=== PATIENT | female | born 1940 | race Caucasian/White ===

== ENCOUNTER 2019-03-25 22:02 | Inpatient (IN) ==
[2019-03-25] MEDS ORDERED: MORPHINE IM ONE (22:52)
[2019-03-26] MEDS ORDERED: ZOFRAN PO ONE (00:13)
--- NOTE | 2019-03-26 00:35 | PROVIDER DOCUMENTATION ---
This chart was entered by Jonathan Cruz Scribe, acting as scribe for Willie Daniel MD. HPI-Musculoskeletal Pain/Inj - GENERAL Chief Complaint: Extremity Injury Stated Complaint: fall Time Seen by Provider: 03/25/19 22:27 Source: patient, family (friends), EMS - HX OF PRESENT ILLNESS-MUSKULOSKELTAL Nature of Presenting Problem: 79 yof presents to the ed v/a ems with c/o Lt knee pain from falling. Friends stated" was at pts house it was dark and all getting in cars looked back and pt was on her back , pt states i might of fell on left side when falling i stepped off curve." pt has abrasion on Lt knee and has pain when walking on Lt extremity." Quality of Pain: reports: aching Severity in ED: mild Onset/Duration: just prior to arrival Timing: still present Modifying Factors: worse with: massage, movement Any recent injury?: No Locality of Occurance: Home Similar Symptoms Previously?: No Recently seen or treated by another doctor?: No - FALL INJURY Location of Pain/Injury: reports: lower extremity (Lt Knee abrasion swelling) Pain Radiation: reports: no radiation Reason for Fall: reports: tripped Symptoms prior to fall:: reports: none Loss of Consciousness: no loss of consciousness Injury Associated Symptoms: reports: unable to bear weight, trouble walking. denies: back/neck pain, chest pain, nausea, vomiting - LOWER EXTREMITY PAIN/INJURY Lower Extremities Pain: knee: left (abrasion ) Context / Method of Injury: reports: fell Associated Symptoms: reports: denies symptoms Review of Systems - Adult - REVIEW OF SYSTEMS - ADULT Constitutional: reports: no symptoms reported Eyes: reports: no symptoms reported Ears, Nose, Mouth & Throat: reports: no symptoms reported Cardiovascular: reports: no symptoms reported Respiratory: reports: no symptoms reported Gastrointestinal: reports: no symptoms reported Genitourinary: reports: no symptoms reported Musculoskeletal: reports: see HPI. denies: back pain, neck pain Integumentary: reports: no symptoms reported Neurological: reports: no symptoms reported Psychiatric: reports: no symptoms reported Endocrine: reports: no symptoms reported Hematologic/Lymphatic: reports: no symptoms reported Allergic/Immunologic: reports: no symptoms reported All Other Systems: Reviewed and Negative Past History - Adult - PAST MEDICAL HISTORY-ADULT Review of Records: reports: Old Records Reviewed, Nursing Assessment Review, Medications Reviewed, Social history reviewed & non-contributory. Major Childhood Illnesses: reports: denies history Cardiovascular: reports: HTN Respiratory: reports: denies history Gastrointestinal: reports: denies history Obstetrical/Gynecological: reports: denies history Genitourinary: reports: denies history Musculoskeletal: reports: denies history Neurological: reports: denies history Endocrine/Immune: reports: denies history Other Conditions: reports: denies history - PRIOR SURGERIES/PROCEDURES Surgical/Procedure History: reports: cholecystectomy, hysterectomy - IMMUNIZATION STATUS Childhood Immunizations: See Nurse Assessment Flu Vaccine: See Nurse Assessment - FAMILY HISTORY Family History: reviewed, not pertinent - SOCIAL HISTORY Smoking: denies Substance Use: denies Living Situation: alone Physical Exam-Injury Related - Physical Exam-Injury Related Initial Vital Signs Reviewed: Yes General Appearance: appears well, alert, mild distress. negative: lethargic, slow to respond Eyes: PERRL/EOMI Head, Ears, Nose, Mouth & Throat: moist mucous membranes Neck: full range of motion Respiratory: no pleuratic chest pain, no respiratory distress, no accessory muscle use Chest/Breast: deferred Abdominal Exam: no organomegaly, no pulsatile mass Female Genitalia/Pelvic Exam: deferred Rectal Exam: deferred Hemoccult Exam: deferred Lymphatic: no adenopathy Integumentary: normal color, warm/dry, abrasion (Lt knee) Neurologic: grossly normal, no motor/sensory deficits Psych/Mental Status: normal mood/affect, normal thought content, normal thought process, oriented x 3 - Glascow Coma Score Best Eye Response ([place]): (4) open spontaneously Best Verbal Response ([place]): (5) oriented Best Motor Response ([place]): (6) obeys commands [place] Total: 15 Progress - PLAN OF CARE/RESULTS Progress/Plan/Lab Results: Orders Category Date Time Status Nursing- Obtain EKG ONCE Care 03/26/19 00:33 Ordered CHEST-1 VIEW [RAD] Stat Exams 03/26/19 00:33 Ordered KNEE 3 VIEWS LEFT [RAD] Stat Exams 03/25/19 22:52 Taken CBC WITH ELECTRONIC DIFF [HEME] Stat Lab 03/26/19 00:33 Uncollected COMPREHENSIVE METABOLIC PANEL [CHEM] Stat Lab 03/26/19 00:33 Uncollected PROTIME WITH INR [COAG] Stat Lab 03/26/19 00:33 Uncollected PTT [COAG] Stat Lab 03/26/19 00:33 Uncollected TROPONIN T Stat Lab 03/26/19 00:33 Uncollected TYPE & SCREEN [BBK] Stat Lab 03/26/19 00:33 Uncollected Morphine Med 03/25/19 22:52 Discontinued 4 mg IM NOW ONE Ondansetron [Zofran] Med 03/26/19 00:13 Discontinued 4 mg PO NOW ONE EKG [EKG] Stat Ther 03/26/19 00:33 Ordered Pt has proximal tibia fx, spoke with Dr. Griffin and he will operated on Thursday, spoke with Dr. Castillo and will admit to his service - CONSULTS/PCP/HOSPITALIST Notification #1 *Consult/PCP/Hospitalist*: on phone with Dr. Griffin Time Discussed: 00:25 (pts fracture) #2 Consult: on phone with Dr. Castillo Time Discussed: 00:31 Consult Disposition: Admit Departure - Departure Date of Disposition Decision: 03/26/19 Time of Disposition Decision: 00:35 DIAGNOSIS: Fracture of proximal end of tibia Qualifiers: Encounter type: initial encounter Fracture type: closed Fracture morphology: unspecified fracture morphology Laterality: left Qualified Code(s): S82.102A - Unspecified fracture of upper end of left tibia, initial encounter for closed fracture Disposition: ADMITTED INPATIENT 09 Certified Medical Emergency: Emergent Condition: Good Referrals and Follow-Ups: Zakiya Hardy MD [Primary Care Provider] - - Critical Care Note This patient required my direct & personal management of CC.: No Attestation - Physician/ PRAVEEN Attestation Patient care was provided by Advanced Practice Provider:: No The physician spent face to face time with patient:: Yes Advanced Practice Provider documentation review:: Supervising physician onsite and consulted in the evaluation and care of this patient. The physician did have a face to face encounter with the patient. This chart was documented by the indicated scribe, (Jonathan Cruz Scribe) and accurately reflects the services I performed and decisions made by me, Willie Daniel MD, as attested by the provider's signature.
[2019-03-26] MEDS ORDERED: NS 1,000 ML IV SCH (01:15)
[2019-03-26 02:16] LABS: BASO# 0.03 X1000 (0.0-0.2); BASO% 0.2 % (0.0-0.8); EOS# 0.05 X1000 (0.0-0.7); EOS% 0.3 % (0.0-10.0); HEMATOCRIT 39.6 % (37.0-47.0); IMM GRAN# 0.04 X1000 (0.0-0.04); IMM GRAN% 0.2 % (0.0-0.5); LYMPH# 1.62 X1000 (1.2-3.4); LYMPH% 9.8 % (20.5-51.1); MCH 29.6 PG (27-31); MCHC 32.8 g/dL (33-37); MCV 90.2 FL (81-99); MONO# 0.96 X1000 (0.11-0.59); MONO% 5.8 % (1.7-9.3); MPV 11.6 FL (7.4-10.4); NEUT# 13.76 X1000 (1.4-6.5); NEUT% 83.7 % (42.2-75.2); PLT 185 X1000 (130-400); RBC 4.39 XMIL (4.2-5.4); RDW 12.7 % (11.5-14.5); WBC 16.46 X1000 (4.8-10.8)
[2019-03-26 02:24] LABS: INR 1.01; PROTIME 13.4 Seconds (11.0-16.0)
[2019-03-26 02:25] LABS: PTT 23.9 Seconds (22.3-41.8)
[2019-03-26 02:33] LABS: ALB/GLOB RATIO 1.6; ALBUMIN 4.3 g/dL (3.5-5.0); CALCIUM 9.5 mg/dL (8.8-10.2); CREATININE 0.9 mg/dL (0.5-0.9); POTASSIUM 3.8 mmol/L (3.5-5.1); TOTAL BILIRUBIN 0.35 mg/dL (0.20-1.00)
--- NOTE | 2019-03-26 03:03 | HISTORY AND PHYSICAL ---
PRIMARY CARE PHYSICIAN: Dr. Hardy. CHIEF COMPLAINT: Left knee pain. HISTORY OF PRESENT ILLNESS: Ms. Amador is an 79-year-old female who presented to the ER today with complaints of left knee pain. Patient states that she was stepping down from a curb and did not realize she was stepping down into a drain and fell. Patient is noted to have an abrasion to below her left knee area. She has some swelling noted to the knee area. She is having extreme pain. X-ray does show a proximal tibia fracture. Dr. Griffin was consulted by the ER physician, Dr. Daniel. We will admit this patient and consult orthopedic services. The patient is lying in ER stretcher. She is awake, alert, and oriented. She is complaining of pain to the left knee region. She was given a couple doses of pain medication in the ER and in the EMS. The knee is edematous. There is an abrasion noted to below the left knee region. The patient is not complaining of any other symptoms at this time. Patient does have a past medical history of hypertension, hyperlipidemia, a TIA and is on Plavix, and diabetes type 2 on metformin. The patient has not complained of any dizziness, any palpitations, any bowel or urinary symptoms or any other pain at this time. PAST MEDICAL HISTORY: TIA, hyperlipidemia, hypertension, diabetes type 2. PAST SURGICAL HISTORY: Gallbladder removal, hysterectomy. FAMILY HISTORY: Nonsignificant. SOCIAL HISTORY: The patient denies any smoking, alcohol or illicit drug abuse. ALLERGIES: Codeine and morphine. HOME MEDICATIONS: 1. Plavix 75 mg p.o. daily. 2. Ramipril 5 mg p.o. daily 3. Atorvastatin 20 mg p.o. daily. 4. Metformin 500 mg p.o. b.i.d. 5. Propranolol 20 mg t.i.d. p.o. for tremors. 6. Mirtazapine 15 mg p.o. at bedtime for sleep. LABORATORIES AND DIAGNOSTICS: Left knee x-ray does show a proximal tibia fracture. All other labs are pending. REVIEW OF SYSTEMS: A 12 point review of systems has been obtained and all are negative except what is stated above in the HPI. PHYSICAL EXAMINATION: GENERAL: This is an 79-year-old female. She is well nourished and well developed. She is in no acute distress at present time. HEENT: Atraumatic, normocephalic. Pupils equal, round, reactive to light. Sclerae are icteric. Mucous membranes are moist. NECK: Supple. No lymphadenopathy. Trachea is midline. No JVD. No thyromegaly. No bruits. CARDIOVASCULAR: Regular rate and rhythm. No murmurs, gallops, or rubs appreciated. RESPIRATORY: Lung sounds are clear with equal chest excursion. Respirations are nonlabored with no accessory muscle usage. GASTROINTESTINAL: Abdomen is soft, nontender, nondistended with bowel sounds present x4. NEUROLOGIC: Cranial nerves 2-12 are intact. The patient is awake, alert, and oriented, able to follow all commands. MUSCULOSKELETAL: The patient has full distal strength, however, the left lower extremity I did not perform strength on that because she did have a break on the extremity. However, she is able to move that extremity. There are no deformities noted. EXTREMITIES: There is no clubbing. No cyanosis. There is edema noted to the ankles and to the left knee area. DP and PT pulses are present and palpable. SKIN: Warm and dry. There is an abrasion noted to the left tibia area. There is no diaphoresis. ASSESSMENT AND PLAN: 1. Left proximal tibia fracture. We are going to admit this patient to the medical floor. We are going to place her on cafeteria monitor. We are going to consult Dr. Griffin for orthopedic services. We will go ahead and start her on a diet at this time. We will control her pain with Dilaudid. She is allergic to morphine and codeine. We will await Dr. Griffin's recommendations about when he is going to take her for surgery on this extremity. We are going to get some labs in the morning. We will put her on Lovenox. 2. Hypertension. She is on some medications at home for this. We will restart her home medications. 3. Hyperlipidemia. She is on atorvastatin at home. I will restart this medication. 4. Gastrointestinal prophylaxis. I will start her on some Prilosec daily. 5. Deep venous thrombosis prophylaxis. I will start her on Lovenox. PLAN: I am going to admit her to the medical floor. I am going to consult Dr. Griffin for orthopedic services. I will go ahead and start her on a diet and get some labs in the morning. I will start her on IV fluid hydration. I am going to put her on Lovenox and await Orthopedics recommendations about when she will be taken to surgery. I will provide her with Dilaudid for pain control and I will give her Zofran as needed for nausea. All other further recommendation pending hospital course and lab data. Dictated by ASHWIN Maza for MD Dr. Jonathan Bhatia participated in the interview and examination of the patient with ASHWIN. The above dictation is reflective of that interaction and the resultant medical treatment plan as discussed. cc: MD Armond Bhatia MD MTDAlma
--- NOTE | 2019-03-26 03:14 | EKG Report ---
Test Performed on : 03/26/2019 02:25:27 AM Test Reason : chest pain Blood Pressure : / mmHG Vent. Rate : 079 BPM Atrial Rate : 079 BPM P-R Int : 156 ms QRS Dur : 132 ms QT Int : 394 ms P-R-T Axes : 067 048 -08 degrees QTc Int : 451 ms Normal sinus rhythm. Possible Left atrial enlargement Right bundle branch block T wave abnormality, consider inferior ischemia T wave abnormality, consider anterior ischemia Abnormal ECG When compared with ECG of 19-MAR-2017 11:07, No significant change was found Confirmed by Delgado Castillo MD ([id number]) on 03/31/2019 8:57:29 AM
[2019-03-26] MEDS: DILAUDID IV PRN ×3 (03:41→22:41)
[2019-03-26] MEDS: LOVENOX SUBQ SCH (03:50)
[2019-03-26 04:15] LABS: BILIRUBIN URINE NEGATIVE (NEGATIVE); BLOOD URINE NEGATIVE (NEGATIVE); COLOR YELLOW; GLUCOSE URINE TRACE mg/dL (NEGATIVE); KETONE URINE NEGATIVE (NEGATIVE); LEUKOCYTES URINE TRACE (NEGATIVE); NITRITE URINE NEGATIVE (NEGATIVE); PH URINE 6.5; PROTEIN URINE TRACE mg/dL (NEGATIVE); SP GRAVITY URINE 1.016; TURBIDITY URINE CLEAR (CLEAR); URINE SOURCE CLEAN CATCH; UROBILINOGEN URINE NORMAL (NORMAL)
[2019-03-26 04:16] LABS: UR EPITHELIAL CELLS <10 /HPF (<10); URINE BACTERIA NEGATIVE /HPF; URINE RBC <10 /HPF (<10); URINE WBC <10 /HPF (<10)
--- NOTE | 2019-03-26 06:37 | Diag Imaging Result Doc PS360 ---
EXAM: CHEST-1 VIEW HISTORY: chest pain TECHNIQUE: Chest single view COMPARISON: 03/19/2017 FINDINGS: The lungs are well expanded. The heart is not enlarged. The vessels are not distended. There are no infiltrates. No effusion identified. IMPRESSION: Negative exam. Electronically signed by Mitchell Corley 03/26/2019 6:35 AM
--- NOTE | 2019-03-26 06:47 | Diag Imaging Result Doc PS360 ---
EXAM: KNEE 3 VIEWS LEFT HISTORY: fall, left knee pain TECHNIQUE: Left knee, three views COMPARISON: None. FINDINGS: There are oblique fracture lines through the proximal tibia. Minimal displacement and angulation. No fracture to the distal femur or to the proximal fibula. IMPRESSION: Proximal tibia fracture. Electronically signed by Mitchell Corley 03/26/2019 6:45 AM
[2019-03-26 07:07] LABS: HEMATOCRIT 36.9 % (37.0-47.0); HEMOGLOBIN 12.2 g/dL (12.0-16.0)
[2019-03-26] MEDS: ZOFRAN IV PRN ×2 (07:55→12:19)
[2019-03-26] MEDS: PRILOSEC PO SCH (08:53)
--- NOTE | 2019-03-26 09:14 | PROGRESS NOTE ---
DATE: 03/26/2019 SUBJECTIVE: The patient is resting comfortably in bed. At this moment, she is not complaining of pain, but she has been having nausea and she vomited today. I will continue with the IV fluids and also her diet. She has a left proximal tibial fracture, and Orthopedic Surgery Department has been consulted. Continue with pain medication. OBJECTIVE: Vital Signs: Temperature 97.6 degrees, pulse 81, respiratory rate 16, blood pressure 168/70, oxygen saturation 94% on room air. HEENT: Head normocephalic. No trauma. PERRLA. Neck: Supple. No JVD. No masses. Central trachea. Chest: Clear to auscultation. No wheezing. No rales. Abdomen: Soft, nontender, nondistended. No hepatosplenomegaly. Extremities: There is some mild edema at the level of the ankles, especially on the left side. There is also swelling from the left knee area, with some excoriation, it does not look infected. It is painful to palpation. Pulses are palpable. LABORATORY: WBC 16.4, hemoglobin 12.2, hematocrit 39.6, platelets 185,000. Sodium 143, potassium 3.8, chloride 104, bicarbonate 24, BUN 19, creatinine 0.9, glucose 192. Calcium 9.5. ASSESSMENT AND PLAN: 1. Left proximal tibia fracture. At this moment, she is not complaining of pain. We will continue with the same management. She does not tolerate morphine. She has been placed on Dilaudid 0.5 mg every 3 hours and she seems to be better with that treatment. Pending Orthopedic Surgery Department evaluation and recommendations. 2. Hypertension. We will continue with home medications. 3. Hyperlipidemia. Continue with atorvastatin. 4. Gastroesophageal reflux disease. Continue with Prilosec. 5. Deep vein thrombosis prophylaxis. She has been placed on Lovenox and she received a dose apparently at 3:50 a.m. I will continue with this for now and I will wait for Orthopedic Surgery Department recommendations. If she is going for surgery probably will be today, late in the afternoon or tomorrow morning, but like I said I will wait for recommendations. cc: Rodney Ramsey MD
[2019-03-26] MEDS: INDERAL PO SCH ×3 (09:53→22:41)
[2019-03-26] MEDS: GLUCOPHAGE PO SCH ×2 (09:53→17:34)
[2019-03-26] MEDS: ALTACE PO SCH (09:53)
[2019-03-26] MEDS: NEURONTIN PO SCH ×3 (09:53→22:41)
--- NOTE | 2019-03-26 10:43 | Diag Imaging Result Doc PS360 ---
EXAM: CT EXT LOWER LEFT W/O CON HISTORY: Left tibial plateau fracture TECHNIQUE: CT left lower extremity from the mid thigh to the distal tibia without contrast COMPARISON: None. FINDINGS: There is an oblique fracture through the proximal left tibia. Medially this is 7 cm from the tibial plateau. Laterally this extends superiorly and is only 2 cm from the tibial plateau. There is only 1 to 2 mm of displacement with minimal compaction. Nondisplaced oblique fracture to the proximal fibula. Mild soft tissue swelling. IMPRESSION: Oblique fractures to the proximal tibia and fibula. This exam was performed using automated exposure control, adjustment of mA or kV according to patient size, and/or use of iterative reconstruction technique. Electronically signed by Mitchell Corley 03/26/2019 10:41 AM
[2019-03-26] MEDS: HUMULIN R SUBQ SCH ×2 (13:01→17:21)
--- NOTE | 2019-03-26 15:21 | ORTHOPAEDICS CONSULTATION ---
DATE: 03/26/2019 SERVICE: Orthopedic Surgery. PHYSICIAN REQUESTING CONSULTATION: [facility], Dr. Saucedo. REASON FOR CONSULTATION: Left proximal tibia fracture. PAST MEDICAL HISTORY: 1. Transient ischemic attack 2 years ago. 2. Hypertension. 3. Hyperlipidemia. 4. Type 2 diabetes mellitus with her last hemoglobin A1c at 6.0. PAST SURGICAL HISTORY: 1. Cholecystectomy. 2. Hysterectomy. MEDICATIONS: 1. Aspirin 325 mg. 2. Plavix. 3. Metformin. 4. Ramipril. 5. Propranolol. 6. Remeron. 7. Lipitor. ALLERGIES: The patient reports allergy to codeine. SOCIAL HISTORY: Patient lives alone in [place]. She is very active for her age, is a community ambulator without assistive device. She still drives and states she attends water aerobics classes 3 times a week. She denies any tobacco, alcohol, drug use. She is a retired teacher. FAMILY HISTORY: Noncontributory. REVIEW OF SYSTEMS: Ten point review of system was completed, is negative other than what is listed in the history of present illness. CHIEF COMPLAINT: Left leg pain. HISTORY OF PRESENT ILLNESS: Ms Amador is a 79-year-old lady who sustained a same-level fall on 03/25/2019. She states she was walking outside at night and stepped off a curb into a drainage ditch basin unknowingly. She felt a pop in her knee and had significant pain and was unable to bear weight. She was taken to [facility] where x-rays were performed, demonstrating a left proximal 3rd tibia fracture. Orthopedic Surgery was thus consulted. The patient denies any pain in this leg prior to her fall. She denies any other complaints. PHYSICAL EXAMINATION: General: Ms. Amador is an 79-year-old female who appears well- nourished, well-developed, in no acute distress. She is awake, alert, oriented x3. She is very polite and cooperative during examination. Vital Signs: Temperature 98.2 degrees Fahrenheit, heart rate 78, respiratory rate 16, blood pressure 180/73, O2 saturation 91% on room air. HEENT: Normocephalic and atraumatic. Respiratory: Nonlabored breathing. Cardiovascular: Regular rate and rhythm. Extremities: Examination of left lower extremity shows a small superficial abrasion over the anterior aspect of her knee and tibial tubercle. She has no joint effusion in the knee. She has significant tenderness to palpation over her proximal tibia. Nontender over the fibula. Nontender thigh, ankle, or foot. Motor is intact EHL, tibialis anterior, gastrocsoleus complex. Sensation intact to light touch L3 to S1. Dorsalis pedis pulses palpable and equal bilaterally. Thigh and calf compartments are soft and compressible. She has some mild swelling in her anterior and lateral leg compartments; however, they are still soft and compressible. No pain with passive range of motion of the toes. No signs of acute compartment syndrome. LABORATORY DATA: White count is 16.5, hemoglobin 13, hematocrit 40, platelets 185,000. INR 1.0. Sodium 143, potassium 3.8, chloride 104, carbon oxide 24, BUN 19, creatinine 0.9, glucose 151. Urinalysis negative. IMAGING: AP, lateral and oblique views of the left knee were performed, demonstrating a proximal 3rd, minimally displaced, oblique tibia fracture that does not appear to extend into the articular surface. CT scan without contrast of the left lower extremity was also performed demonstrating an oblique fracture through the proximal tibia with no intra-articular involvement. On CT scan, there appears to be a nondisplaced oblique fracture through the proximal fibula. ASSESSMENT: An 79-year-old female with a left minimally displaced proximal 3rd tibia fracture as well as a nondisplaced oblique proximal fibular head fracture. PLAN: 1. A long discussion was had with the patient and her close friend as well as her son on the phone regarding diagnosis and treatment options. I discussed both operative and nonoperative treatments in detail with the patient and family. We could attempt nonoperative management of this in a cast. The downside of this is worrying about pressure points and cast wounds as well as loss of reduction in the cast. This saves the risks of surgery; however, does have significant risk of wound complications, loss of reduction, and slowing down mobilization. If we went the surgical route, would recommend open reduction and internal fixation with a plate and screws. The biggest risk of the surgery is infection, especially given the fact she is diabetic. However, she is well controlled. We would be able to place her into a control motion brace following surgery to allow her to continue move her knee and prevent any stiffness in the knee. The risks of surgery include risk of bleeding, infection, damage to nerves and vessels around the area, nonunion, malunion, painful hardware, need for revision surgery. Also the risk of anesthesia including blood clot, stroke, heart attack, even . The patient and family understand these risks. They are going to think about treatment options and I will check back with them later this evening or in the morning to see what they have decided. 2. In the meantime, we will make the patient nonweightbearing to the left lower extremity. She needs to keep her left lower extremity iced and elevated on 2 pillows at all times. 3. Neurovascular monitoring and compartment checks q.2 hours. 4. Lovenox for deep venous thrombosis prophylaxis. We will hold aspirin and Plavix anticoagulation just in case she does choose to go the surgical route. 5. I recommend placing a knee immobilizer with significant cast padding around the fracture if the patient needs to be mobilized.
[2019-03-26] MEDS: 1/2 NS 1,000 ML IV SCH (17:34)
[2019-03-26] MEDS: LIPITOR PO SCH (22:41)
[2019-03-26] MEDS: REMERON PO SCH (22:41)
[2019-03-26] MEDS: TYLENOL PO PRN (23:47)
[2019-03-27] MEDS: HUMULIN R SUBQ SCH ×5 (03:04→21:36)
[2019-03-27] MEDS: LOVENOX SUBQ SCH (05:00)
[2019-03-27] MEDS: 1/2 NS 1,000 ML IV SCH ×2 (05:03→17:17)
[2019-03-27] MEDS: PRILOSEC PO SCH (06:30)
[2019-03-27 07:39] LABS: BASO# 0.05 X1000 (0.0-0.2); BASO% 0.5 % (0.0-0.8); EOS# 0.61 X1000 (0.0-0.7); EOS% 6.1 % (0.0-10.0); HEMATOCRIT 38.1 % (37.0-47.0); HEMOGLOBIN 12.6 g/dL (12.0-16.0); IMM GRAN# 0.03 X1000 (0.0-0.04); IMM GRAN% 0.3 % (0.0-0.5); LYMPH# 2.41 X1000 (1.2-3.4); LYMPH% 24.1 % (20.5-51.1); MCH 30.4 PG (27-31); MCHC 33.1 g/dL (33-37); MCV 91.8 FL (81-99); MONO# 0.74 X1000 (0.11-0.59); MONO% 7.4 % (1.7-9.3); MPV 11.8 FL (7.4-10.4); NEUT# 6.18 X1000 (1.4-6.5); NEUT% 61.6 % (42.2-75.2); PLT 137 X1000 (130-400); RBC 4.15 XMIL (4.2-5.4); WBC 10.02 X1000 (4.8-10.8)
[2019-03-27 08:08] LABS: AGAP 16; BUN 11 mg/dL (8-22); CALCIUM 9.1 mg/dL (8.8-10.2); CHLORIDE 103 mmol/L (98-107); COSMO 275; CREATININE 0.8 mg/dL (0.5-0.9); ESTIMATED GFR > 60; GLUCOSE 122 mg/dL (70-104); POTASSIUM 3.9 mmol/L (3.5-5.1); SODIUM 137 mmol/L (136-145); TCO2 18 mmol/L (25-35)
[2019-03-27 08:11] LABS: HEMOGLOBIN A1C 5.8 % (4.8-6.0)
[2019-03-27] MEDS: GLUCOPHAGE PO SCH ×2 (09:57→17:18)
[2019-03-27] MEDS: NEURONTIN PO SCH ×3 (09:57→17:19)
[2019-03-27] MEDS: ALTACE PO SCH (09:57)
[2019-03-27] MEDS: TYLENOL PO PRN (09:57)
[2019-03-27] MEDS: INDERAL PO SCH ×3 (09:57→17:19)
--- NOTE | 2019-03-27 12:06 | PROGRESS NOTE ---
DATE: 03/27/2019 SUBJECTIVE: This patient is resting comfortably in bed. Pain has been controlled. She will go ahead and have her surgery done tomorrow, I will stop the Lovenox, and I will put her NPO after midnight just in case she is going for surgery. Otherwise, I will continue with same management. OBJECTIVE: Vital Signs: Temperature 98.2 degrees, pulse 76, respiratory rate 16, blood pressure 153/59, oxygen saturation 94% on room air. PHYSICAL EXAMINATION: HEENT: Head normocephalic, no trauma, PERRLA. Neck: Supple. No JVD. No masses. Central trachea. Chest: Clear to auscultation. No wheezing. No rales. Abdomen: Soft, nontender, nondistended. No hepatosplenomegaly. Extremities: There is some mild edema at the level of the ankles, especially on the left side. There is also swelling from the left knee area, with some excoriation, does not look infected. It is painful to palpation. Pulses are palpable. Neurological: The patient is alert, she is oriented x3. No focal deficits. LABORATORY: WBC 10, hemoglobin 12.6, hematocrit 38.1, platelets 137,000. Sodium 137, potassium 3.9, chloride 103, bicarbonate 18, BUN 11, creatinine 0.8, glucose 122, calcium 9.1. ASSESSMENT AND PLAN: 1. Left proximal tibia fracture. It looks like she is going for surgery tomorrow. Continue with the same management. I will put this patient NPO after midnight and also will stop the Lovenox. 2. Hypertension. Continue home medication. 3. Hyperlipidemia. Continue with atorvastatin. 4. Gastroesophageal reflux disease. Continue with Prilosec. cc: Rodney Ramsey MD
--- NOTE | 2019-03-27 13:51 | ORTHOPAEDICS PROGRESS NOTE ---
DATE: 03/27/2019 SUBJECTIVE: No acute events overnight. Patient is doing well. Pain is better controlled. She has been tolerating a diet. She thought about surgery last night and wishes to proceed with open reduction, internal fixation of her fracture. OBJECTIVE: White count 10, hematocrit 38. Urine culture was negative. Examination of left lower extremity shows a superficial abrasion on the anterior aspect of her knee over her tibial tubercle to be stable with eschar forming. No sign of infection. Her compartments are soft and compressible. Tender palpation around her proximal tibia. Motor is intact EHL, tibialis anterior, gastrocsoleus complex. Sensation intact to light touch L3-S1. Dorsalis pedis pulse is palpable. No pain with passive range of motion of her toes. No sign of compartment syndrome. ASSESSMENT: 79-year-old female with a left closed proximal tibia fracture as well as fibular head nondisplaced fracture. PLAN: 1. The patient is wishing to have a surgical fixation of her fracture. She did mention wanting to get a 2nd opinion for treatment of this, which is okay with me. I will talk with one of my partners this afternoon to see if they can come see her tomorrow morning. In the meantime, will go ahead and make her n.p.o. at midnight tonight. Hold aspirin, Plavix. She can be on Lovenox for DVT prophylaxis and will hold the a.m. dose. 2. Will plan for open reduction and internal fixation of her left tibial shaft fracture tomorrow morning when OR space available. 3. Ice and elevate left lower extremity all times. 4. We will place knee immobilizer around the knee she needs to be transferred or for immobilization. Otherwise when she is lying in the bed as long as she is still she does not necessarily need any type immobilization. 5. Appreciate hospitalist recommendations.
[2019-03-27] MEDS: DILAUDID IV PRN ×2 (17:19→21:37)
[2019-03-27] MEDS: REMERON PO SCH (21:37)
[2019-03-27] MEDS: LIPITOR PO SCH (21:37)
[2019-03-28] MEDS: HUMULIN R SUBQ SCH ×4 (07:07→21:50)
[2019-03-28] MEDS: PRILOSEC PO SCH ×2 (07:07→21:48)
[2019-03-28 07:11] LABS: HEMATOCRIT 32.2 % (37.0-47.0); HEMOGLOBIN 10.5 g/dL (12.0-16.0)
[2019-03-28 07:28] LABS: CALCIUM 8.4 mg/dL (8.8-10.2); CREATININE 0.9 mg/dL (0.5-0.9); POTASSIUM 3.7 mmol/L (3.5-5.1)
--- NOTE | 2019-03-28 09:21 | Diag Imaging Result Doc PS360 ---
EXAM: CT ANGIOGRM PULMONARY ARTERIES 03/28/2019 HISTORY: R/O PE, low O2 TECHNIQUE: This exam was performed using automated exposure control, adjustment of mA or kV according to patient size, and/or use of iterative reconstruction technique. COMMENT: 3-D MIPS were performed. There are no filling defects present in the pulmonary arteries. The aorta is not distended and there is no evidence of dissection. There are some calcified and noncalcified plaques. There is a tiny amount of fluid in both posterior costophrenic sulci. There are calcified granulomata in the liver and spleen. There is a precarinal node measuring over 2.2 cm. There is some mild interstitial edema or fibrosis particularly in the apices. There is dependent atelectasis in both lower lobes. No dense pulmonary consolidation is present. IMPRESSION: Minimal pleural effusions and atelectasis. Questionable interstitial fibrosis or edema. No evidence of pulmonary emboli. Electronically signed by Tramaine An 03/28/2019 9:19 AM
--- NOTE | 2019-03-28 10:45 | PROGRESS NOTE ---
DATE: 03/28/2019 SUBJECTIVE: The patient is resting comfortably in bed. Her oxygen saturation has been dropping to the 80s, and even sometimes with oxygen, her oxygen is in the low 90s and high 80s. Since this patient has a fracture and has been in bed, I have requested a CT angiogram to rule out PE, and it looks like it is negative. Also, I requested a Doppler ultrasound of the lower extremities. I do feel we need to stabilize this patient before going for surgery, and I have requested an evaluation by Pulmonary Department. On the other hand, her hemoglobin dropped to 10.5. I will recheck that in the afternoon as well. OBJECTIVE: Vital Signs: Temperature 99 degrees, pulse 81, respiratory rate 15, blood pressure 155/54, oxygen saturation 89 on 3 L of nasal cannula, 86 on room air. HEENT: Head normocephalic. No trauma. PERRLA. Neck: Supple. No JVD. No masses. Central trachea. Chest: Some crepitus at the bases. No wheezing. No rales. Abdomen: Soft, nontender, nondistended. No hepatosplenomegaly. Extremities: Trace edema at the level of the ankles, and especially on the left side. There is also swelling from the left knee down. Some excoriation at the level of the knee, but does not look infected. It is painful to palpation. Pulses are palpable. Neurological: The patient is completely alert and oriented x3. No focal deficits. LABORATORY DATA: Hemoglobin 10.5, hematocrit 32.2. Sodium 138, potassium 3.7, chloride 102, bicarbonate 24, BUN 11, creatinine 0.9, glucose 146, calcium 8.4. ASSESSMENT AND PLAN: 1. Left proximal tibial fracture. The plan was to take this patient to the operating room today, but she is hypoxemic. CT angiogram did not show any pulmonary embolism, but her oxygen saturation is low even with oxygen. The last dose of Lovenox was yesterday at 5 a.m. I requested the nurse to notify the surgeon that probably we need to reschedule the surgery. 2. Hypertension. Will continue home medication. 3. Hyperlipidemia. Continue with atorvastatin. 4. Gastroesophageal reflux disease. Continue with Prilosec. 5. History of transient ischemic attack. Will continue to monitor. This patient was on aspirin and also Plavix upon admission, which have been stopped. cc: Rodney Ramsey MD
[2019-03-28] MEDS: 1/2 NS 1,000 ML IV SCH (11:56)
--- NOTE | 2019-03-28 13:04 | ORTHOPAEDICS PROGRESS NOTE ---
DATE: 03/28/2019 SUBJECTIVE: No acute events overnight. Patient had a drop in her O2 saturation early this morning. We were planning on doing surgery on her left tibial fracture today. However, given the drop and the increased requirements for oxygen to maintain saturations, Dr. Antonio ordered a CT angiogram which was negative for PE. He wants Dr. Penaloza with pulmonology to see her in consultation to make sure nothing else is going on. Surgery is currently on hold. The patient states she is feeling okay overall. Her pain is controlled as long as she is not moving that leg. She still remains NPO. OBJECTIVE: Hematocrit 32. Extremities: Examination of the left lower extremity shows the skin intact. Compartments are soft in her calf and thigh. Mild tenderness to palpation over her proximal tibial fracture site. Toes are up and downgoing. No pain with passive range of motion of her foot and toes. Otherwise, neurovascularly intact. ASSESSMENT: An 79-year-old female with left proximal tibia fracture as well as nondisplaced proximal fibula fracture. PLAN: 1. The patient is to remain nonweightbearing to the lower extremity. 2. We were planning for surgery today. However, given her respiratory function and decreased oxygen saturations, surgery was postponed. We are awaiting consultation with pulmonology and we will follow up on their recommendations. She can remain NPO for now until the landfill gas collection operator sees her. If they are okay with surgery later on this afternoon, we will try to add if OR space is available. However, if they want additional testing, she can be started on a diet. From orthopedic standpoint, we will plan surgery either tomorrow or the following day. 3. Ice and elevate left lower extremity at all times. 4. Compartment checks. 5. Appreciate hospitalist's recommendations.
[2019-03-28] MEDS ORDERED: LASIX IV ONE (14:02)
[2019-03-28] MEDS: INDERAL PO SCH ×3 (15:24→17:31)
[2019-03-28] MEDS: GLUCOPHAGE PO SCH ×2 (15:24→17:30)
[2019-03-28] MEDS: NEURONTIN PO SCH ×2 (15:24→17:30)
[2019-03-28] MEDS: ALTACE PO SCH ×2 (15:25→17:30)
--- NOTE | 2019-03-28 17:04 | PROGRESS NOTE ---
DATE: 03/28/2019 The patient has been re-evaluated by me around 2 p.m. and again at 2:30. SUBJECTIVE: Patient is resting comfortably in bed. Her oxygen saturation has been stable on oxygen. It was 100% on 3 L and around 98% on 2 L. Earlier, she was desaturating to the 80s on room air, and it was low even with oxygen, around 89 to 91 with 3 L. She seems to be better at this moment. We did a CT angiogram to rule out PE, given her current condition, but showed minimal pleural effusion and atelectasis, questionable interstitial fibrosis or edema, and no evidence of pulmonary emboli. Given those results, I believe it is okay to go ahead and get the surgery done. I told the nurse to contact the Orthopedic Surgery Department, and then I called him myself. I explained to him the whole situation, and he agreed with me 100%. Dr. Griffin will try to get this patient for surgery today. If he cannot do that, hopefully it is going to be tomorrow morning. OBJECTIVE: Vital Signs: Temperature 98.8 degrees, pulse 92, respiratory rate 17, blood pressure 174/71, oxygen saturation 95% on 2 L of nasal cannula. HEENT: Head normocephalic, no trauma. PERRLA. Neck: Supple no JVD. No masses. Central trachea. Chest: Decreased breath sounds at the bases with some crepitus. Abdomen: Soft, nontender, nondistended. No hepatosplenomegaly. Extremities: Trace edema at the level of the ankles and especially on the left side. Also swelling at the level of the left knee with some excoriation on the knee as well, but does not look infected. It is painful to palpation, though. Pulses are palpable. Neurological: She is completely alert. She is oriented x3. No focal deficits. LABORATORY: Same lab work compared with today in the morning: Hemoglobin 10.5, hematocrit 32.2, platelets 238,000. Potassium 3.7, chloride 102, bicarbonate 24, BUN 11, creatinine 0.9, glucose 146, calcium 8.4. ASSESSMENT AND PLAN: 1. Left proximal tibial fracture. The plan is to take this patient to the OR today or tomorrow. She was hypoxemic this morning, so we did a CT angiogram that did not show any pulmonary embolism, questionable interstitial fibrosis or edema, minimal pleural effusion. She received a low dose of Lasix. I do not want to be aggressive to avoid nephrotoxicity since this patient already had some contrast today. 2. Hypoxemia. I have decreased the rate of the IV fluids, and also I gave her some Lasix, low dose. I think I feel this patient will be okay. She was on room air during the past 2 days without any kind of problem, and she started to have desaturation today. I have requested an evaluation by the Pulmonary Department. 3. Hypertension. Continue home medications. 4. Hyperlipidemia. Continue with atorvastatin. 5. Gastroesophageal reflux disease. Continue with Prilosec. 6. History of transient ischemic attack. We will monitor for now. This patient had been on aspirin and Plavix upon admission, which has been stopped due to her possible surgery. cc: Rodney Ramsey MD
[2019-03-28] MEDS ORDERED: LOVENOX SUBQ ONE (17:28)
[2019-03-28] MEDS: LIPITOR PO SCH (21:48)
[2019-03-28] MEDS: DILAUDID IV PRN (21:48)
[2019-03-28] MEDS: REMERON PO SCH (21:49)
[2019-03-28] MEDS: ZOFRAN IV PRN (21:58)
--- NOTE | 2019-03-28 22:10 | PULMONOLOGY CONSULTATION ---
DATE: 03/28/2019 REQUESTING PHYSICIAN: Dr. Antonio. REASON FOR CONSULTATION: Respiratory failure. HISTORY OF PRESENT ILLNESS: Ms. Amador is an 79-year-old white female, never a smoker, who was stepping off a curb and dropped down into a drain. She developed pain in her left knee. She presented to the emergency room, and x-rays revealed a left proximal tibial fracture along with a nondisplaced fibula fracture. The patient had some mild oxygen desaturation into the mid 80s noted this morning, and her planned operation on the left knee was canceled. The patient underwent a CT scan of the chest with pulmonary angiography which revealed minor basilar atelectasis with trace effusions and no evidence of acute pulmonary emboli. PAST MEDICAL HISTORY PROBLEM LIST: 1. Hypertension. 2. History of TIA. 3. Dyslipidemia. 4. Type 2 diabetes mellitus. 5. Status post cholecystectomy. 6. Status post hysterectomy. SOCIAL HISTORY: Never drinker. Never smoker. FAMILY HISTORY: Noncontributory to current presentation. PHYSICAL EXAMINATION: Reveals a healthy-appearing white female who appears younger than her stated age of 79. Blood pressure 159/67, heart rate 93, respiratory rate 17, oxygen saturation 98% on 2 L per nasal cannula.HEENT: Pupils are equal and reactive. Oropharynx appears clear. Neck is supple. Chest reveals minimal crackles in the lung bases. Cardiac: S1, S2. Abdomen is soft with good bowel sounds. Extremities reveal a brace on the left knee. IMPRESSION: An 79-year-old with: 1. Atelectasis. 2. Trace pleural effusions. 3. Mild hypoxemic respiratory failure. DISCUSSION: An 79-year-old with problems outlined above. She has minor hypoxemia, likely related to atelectasis. Would recommend initiating incentive spirometry and to mobilize patient as soon as possible. The patient does have a long bone fracture which raises a possibility of fatty emboli. However, I see no clinical or radiographic evidence to be concerned about a fatty embolus. RECOMMENDATION: 1. Continue oxygen as needed to maintain saturation greater than 90%. 2. Continue incentive spirometry. 3. Anticipate surgical intervention on left leg fracture tomorrow. cc: Karel Penaloza MD
[2019-03-29 06:26] LABS: BASO# 0.02 X1000 (0.0-0.2); BASO% 0.2 % (0.0-0.8); EOS# 0.49 X1000 (0.0-0.7); EOS% 5.3 % (0.0-10.0); HEMATOCRIT 31.3 % (37.0-47.0); HEMOGLOBIN 10.1 g/dL (12.0-16.0); LYMPH# 1.55 X1000 (1.2-3.4); LYMPH% 16.8 % (20.5-51.1); MCH 29.1 PG (27-31); MCHC 32.3 g/dL (33-37); MCV 90.2 FL (81-99); MONO# 1.03 X1000 (0.11-0.59); MONO% 11.2 % (1.7-9.3); MPV 11.2 FL (7.4-10.4); NEUT# 6.11 X1000 (1.4-6.5); NEUT% 66.5 % (42.2-75.2); PLT 141 X1000 (130-400); RBC 3.47 XMIL (4.2-5.4); RDW 12.6 % (11.5-14.5)
[2019-03-29 06:48] LABS: CALCIUM 8.3 mg/dL (8.8-10.2); POTASSIUM 3.7 mmol/L (3.5-5.1)
[2019-03-29] MEDS: HUMULIN R SUBQ SCH ×4 (07:00→21:00)
[2019-03-29] MEDS: PRILOSEC PO SCH (08:20)
[2019-03-29] MEDS: DILAUDID IV PRN ×2 (09:47→23:22)
[2019-03-29] MEDS: 1/2 NS 1,000 ML IV SCH (09:56)
[2019-03-29] MEDS: ALTACE PO SCH ×2 (10:34→23:19)
[2019-03-29] MEDS: GLUCOPHAGE PO SCH ×2 (10:34→17:56)
[2019-03-29] MEDS: INDERAL PO SCH ×4 (10:34→23:19)
[2019-03-29] MEDS: NEURONTIN PO SCH ×3 (10:34→17:56)
--- NOTE | 2019-03-29 13:22 | PROGRESS NOTE ---
DATE: 03/29/2019 SUBJECTIVE: Ms. Amador says she is feeling pretty good. No complaints at this time. Breathing comfortably. OBJECTIVE: Vital Signs: Temp 98 degrees, pulse 84, respirations 20, blood pressure 167/74. HEENT: Pupils are equal and round. Lungs: Clear in all lung brewer. Cardiovascular: Regular rhythm and rate without murmur or S3. Abdomen: Soft. Skin: Warm and dry. Urine output is 1600 mL. Blood sugar 154, 116, 146. ASSESSMENT AND PLAN: 1. She presented with left proximal tibial fracture, and she is to go to the operating room and get internal fixation. CT angiogram did not show any pulmonary embolism, questionable interstitial fibrosis and edema. 2. Hypoxemia. 3. Hypertension. 4. Hyperlipidemia. 5. Gastroesophageal reflux, on Prilosec. 6. Transient ischemic attack. The patient has been on aspirin and Plavix. Upon admission, Plavix we stopped. The patient has a little atelectasis, trace pleural effusion, mild hypoxemic respiratory failure, minor hypoxemia likely related to atelectasis, so continue incentive spirometry and mobilize the patient when we are able to. MEDICATIONS: Reviewed. She is on Lipitor 20 mg a day, Neurontin 100 mg t.i.d., Glucophage 500 mg b.i.d., Remeron 15 mg every p.m., Inderal 20 mg t.i.d., Altace 5 mg daily. LABORATORY DATA: Reviewed from today. White count 9200, hematocrit 31, hemoglobin 10, platelet count 141,000. Sodium 139, potassium 3.7, chloride 99, BUN 13, creatinine 1.0, blood sugar 124. Blood sugars, the last four were 184, 124, 116, and 146. cc: Raymond Xiong MD
--- NOTE | 2019-03-29 14:09 | ORTHOPAEDICS PROGRESS NOTE ---
DATE: 03/29/2019 SUBJECTIVE: No acute events overnight. Pulmonary saw the patient last night in consultation and cleared her for surgery. She tolerated a diet last night. Her pain is controlled. She is ready to undergo surgery. OBJECTIVE: Hematocrit 31. Examination of left lower extremity shows a superficial abrasion over the anterior aspect of the knee. No joint effusion in the knee. Tender to palpation in her proximal tibia. Compartments are soft and compressible in her thigh and calf. Neurovascularly intact. ASSESSMENT: An 79-year-old female with left proximal tibia fracture. PLAN: 1. The patient is NPO today for planned open reduction internal fixation of her left proximal tibia fracture, when OR space is available. 2. Hold Lovenox today for surgery. SCD for mechanical DVT prophylaxis. 3. Ice and elevate left lower extremity at all times. 4. Appreciate Pulmonary and hospitalist recommendations and medical management.
[2019-03-29] MEDS ORDERED: XYLOCAINE-MPF 2% ONE (15:49)
[2019-03-29] MEDS ORDERED: DIPRIVAN 1% ONE (15:50)
[2019-03-29] MEDS ORDERED: KEFZOL 2 GM/D5W 2 GM/50 ML IVPB ONE (16:37)
[2019-03-29] MEDS ORDERED: FENTANYL ONE (16:57)
[2019-03-29] MEDS ORDERED: DECADRON ONE (17:34)
[2019-03-29] MEDS ORDERED: ZOFRAN ONE ×2 (17:34→19:46)
[2019-03-29] MEDS ORDERED: MARCAINE 0.25% PF ONE (18:34)
[2019-03-29] MEDS: DILAUDID ONE ×2 (19:39→19:45)
[2019-03-29] MEDS ORDERED: OXY IR PO PRN (19:41)
--- NOTE | 2019-03-29 22:01 | OPERATIVE NOTE ---
PROCEDURE DATE: 03/29/2019 PREOPERATIVE DIAGNOSES: 1. Left proximal tibia fracture. 2. Left nondisplaced fibular head fracture. POSTOPERATIVE DIAGNOSES: 1. Left proximal tibia fracture. 2. Left nondisplaced fibular head fracture. PROCEDURE: 1. Open reduction and internal fixation of left proximal tibia fracture. 2. Closed treatment of left proximal fibula fracture. SURGEON: Armond Griffin MD ASSISTANTS: Jeyson Murillo RN. ANESTHESIA: General. COMPLICATIONS: None. SPECIMENS: None. DRAINS: Hemovac drain in the left lower extremity. BLOOD LOSS: 50 mL. IMPLANTS: 1. Synthes 3.5 variable angle proximal tibial plate, 10 holes. 2. Synthes 2.4 mm LCP T-plate. INDICATIONS FOR PROCEDURE: Ms. Amador is an 79-year-old lady who sustained a same-level fall when she tripped on a curb earlier this week, sustaining a proximal tibia fracture as well as a nondisplaced proximal fibular fracture. Given her fracture pattern, treatment options were discussed with the patient including closed treatment and casting versus open reduction and internal fixation as patient elected to proceed with open reduction and internal fixation as this will allow her to mobilize easier and help with rehab. Risks, benefits, and alternative therapies were discussed with patient regarding surgery. Risks of surgery include, but are not limited to risks of bleeding, infection, damage to nerves and vessels around the area, continued pain following surgery, need for revision surgery. There is also risk of anesthesia including blood clot, stroke, heart attack, even . Patient and family understand these risks. All questions were answered. Informed consent was obtained. PROCEDURE IN DETAIL: Ms. Amador was identified by her wrist band and greeted in preoperative holding area on 03/29/2019. Her left lower extremity, which was the operative site, was marked with indelible ink per [facility] Sign Your Site protocol. Following this, the patient was transferred back to the operating room for surgery. Upon entering the OR, she was transferred in supine position on the Skytron table. All bony prominences were well padded. General endotracheal anesthesia was then induced. At this time the left lower extremity was prepped and draped in routine sterile fashion. Formal time-out was performed confirming correct patient, procedure, operative site, operative side and administration of preoperative antibiotics. Everyone was in agreement. Patient received 2 g of Ancef prior to incision. Esmarch was used to exsanguinate the left lower extremity, and tourniquet was elevated to 300 mmHg. Total tourniquet time was 1 hour and 45 minutes. A 10 blade knife was then used to make a standard anterolateral approach to the proximal tibia, running from the lateral femoral epicondyle distal over Gerdy tubercle to the lateral edge of the tibial crest. A knife was used to dissect through skin and subcutaneous fat. Metzenbaum scissors were then used to clear off the underlying fascia. Once her fascia was well defined, a 15 blade knife was used to make incision through ITB band down on top of Gerdy tubercle, taking the anterior compartment off of the lateral aspect of the tibia, taking care to leave a flap of tissue for closure of our anterior compartment at the end of the procedure. Care was taken to ensure we did not violate the joint capsule underneath IT band. Once this was done, IT band and fascia were elevated anteriorly and posteriorly. A Mancera elevator was then used to bluntly dissect the tibialis anterior and anterior compartment musculature off the lateral crest of the tibia. At this time, our fracture site was easily identified. Once we were done with our exposure, we then used [place] elevators and small curette to mechanically debride the fracture hematoma and soft tissue of the fracture site. When we were done with this, the wound was copiously irrigated with normal saline. At this time, we looked at the fracture on her x-ray and found the tibial tubercle fracture piece was actually a separate piece from the proximal tibial plateau. We attempted to place a 4-5 partially threaded cannulated screw into the tibial metaphysis for fixation of the tubercle, however, had very poor fixation due to the patient's bone quality. The screw was left in temporarily. At this time Griffin clamps were used to obtain reduction of her fracture site. Fluoroscopy was brought in confirming AP and lateral reduction of the fracture. We then placed a Synthes 3.5 mm variable angle proximal tibial locking plate on the outrigger guide on the back table. It was assembled and checked for alignment. The plate was then slid down the lateral tibial crest in routine fashion. Our Griffin clamps were then placed through the plate clamping plate to blunt bone and holding reduction of her fracture. At this time, we then proceeded with placing most proximal rafter locking screws in routine fashion. Screws were placed bicortically. Once this was done, we placed the other remaining 2 locking screws in the proximal tibia. We then used the outrigger guide to percutaneously place our most distal shaft screws, which were placed in hole 6, 8 and 10. The screws were then drilled bicortically, measured and locking screws were placed in routine fashion. Following this, 2 kickstand screws were placed in routine fashion. At this time the outrigger guide was removed. We found to have excellent fixation of our fracture and great alignment on both AP and lateral views. At this time, we then removed the 4-5 cannulated screw from the tibial tubercle that did not have any fixation. We then placed a Synthes 2.4 mm LCP T-plate on the tubercle and bent it in routine fashion in order to contour it around the shape of the bone. Once this was done, 3 locking screws were placed through the T portion of the plate into the tubercle piece obtaining a fixed angle control of this piece. We then placed a cortical screw in the anterior medial tibial shaft in compression mode, which allowed excellent compression of the tubercle fracture piece. We then placed 2 additional locking screws in the tibial shaft. The cortical screw was then switched out for a locking screw. At this time, we felt like we had excellent control of all fracture pieces and good fixation with anatomic alignment of the fracture. Final AP and lateral x-rays were taken confirming extra-articular placement of screws, good reduction of fracture and appropriate screw lengths. We then proceeded with closure of the fracture. The wound was copiously irrigated with normal saline. 0 Vicryl suture was used for closure of the IT band and anterior compartment fascia over the plate. A small Hemovac drain was then placed in the wound superficial fascia. We then placed 20 mL of 0.25% Marcaine plain around the anterior compartment and skin edges for local anesthesia. A 2-0 Vicryl suture was then used for subcutaneous tissue closure followed by 3-0 nylons in horizontal mattress fashion for skin closure. At this time, the wounds were dressed with Xeroform, 4x4s, ABD and sterile Webril. Tourniquet was let down. Total tourniquet time again was 1 hour and 45 minutes. The patient was found to have good DP pulse once the tourniquet was let down, and there was minimal bleeding in the drain. The leg was then loosely wrapped with Marcel wrap and placed into a knee immobilizer brace. At this time, the patient was then transferred over hospital stretcher, extubated and taken to recovery in stable condition. There were no acute complications during the procedure. All sponge and sharp counts were correct at conclusion of procedure.
--- NOTE | 2019-03-29 22:01 | PULMONOLOGY PROGRESS NOTE ---
DATE: 03/29/2019 SUBJECTIVE: The patient was seen at 9 a.m. The patient is awake, alert, and conversant. She denies shortness of breath. She reports no leg pain as long as she remains still. OBJECTIVE: Vital Signs: The patient has been afebrile for the last 24 hours. Blood pressure 148/78, heart rate 82, respiratory rate 18, oxygen saturation 97% on nasal cannula. HEENT: Pupils are equal and reactive. Oropharynx is clear. Neck: Is supple. Chest: Reveals good air entry bilaterally without wheezing or rhonchi. Cardiac exam: S1-S2. Abdomen: Is soft. Extremities: Reveal a brace on the left leg. IMPRESSION: An 79-year-old with 1. Atelectasis. 2. Mild hypoxemic respiratory failure. 3. Trace pleural effusions. 4. Fracture of the left tibia and fibula. RECOMMENDATIONS: 1. Continue incentive spirometry. 2. Continue low-flow nasal cannula. 3. Anticipate surgery today. cc: Karel Penaloza MD
[2019-03-30] MEDS: KEFZOL 1 GM/D5W 1 GM/50 ML IVPB IV SCH ×2 (00:58→09:42)
[2019-03-30] MEDS: OXY IR PO PRN ×5 (01:21→17:23)
[2019-03-30] MEDS: COLACE PO SCH ×2 (02:41→22:13)
[2019-03-30] MEDS: PERIDEX MT SCH ×3 (02:42→22:10)
[2019-03-30] MEDS: DILAUDID IV PRN ×3 (03:31→15:38)
[2019-03-30 06:01] LABS: HEMATOCRIT 31.4 % (37.0-47.0); HEMOGLOBIN 10.3 g/dL (12.0-16.0)
[2019-03-30 06:21] LABS: AGAP 13; BUN 11 mg/dL (8-22); CALCIUM 7.9 mg/dL (8.8-10.2); CHLORIDE 101 mmol/L (98-107); COSMO 282; CREATININE 0.8 mg/dL (0.5-0.9); ESTIMATED GFR > 60; GLUCOSE 157 mg/dL (70-104); POTASSIUM 3.8 mmol/L (3.5-5.1); SODIUM 140 mmol/L (136-145); TCO2 26 mmol/L (25-35)
[2019-03-30] MEDS: PRILOSEC PO SCH (07:16)
[2019-03-30] MEDS: HUMULIN R SUBQ SCH ×4 (07:17→22:14)
[2019-03-30] MEDS: LOVENOX SUBQ SCH (07:17)
[2019-03-30] MEDS: 1/2 NS 1,000 ML IV SCH ×2 (07:18→15:39)
--- NOTE | 2019-03-30 09:38 | ORTHOPAEDICS PROGRESS NOTE ---
DATE: 03/30/2019 SUBJECTIVE: No acute events overnight. Patient doing well. She had a little bit of nausea postoperatively, however, this resolved when she was up on the floor. She has tolerated some coffee this morning with no nausea or vomiting. Pain is well controlled. OBJECTIVE: Hematocrit 31.4. Examination of left lower extremity shows surgical dressing and knee immobilizer to be intact in good repair. MONO drain in place with good seal and minimal output. The drain did not need to be emptied overnight per patient. Motor intact EHL, tibialis anterior, gastrocsoleus complex. Sensation intact to light touch, superficial peroneal, deep peroneal, and tibial nerve distribution. Compartments are soft and compressible. ASSESSMENT: An 79-year-old female status post open reduction and internal fixation left proximal tibia fracture. PLAN: 1. Patient is to be nonweightbearing on her left lower extremity. Physical therapy to mobilize with a rolling walker. 2. Okay to discontinue Raji-Cornelius drain. Keep surgical dressing clean, dry, intact x72 hours. 3. We will get the patient fitted with a control motion brace unlocked 0 to 30 degrees. 4. Appreciate hospitalist recommendations. 5. Disposition: The patient will work with physical therapy today to get their evaluation note. She will likely benefit from inpatient rehab stay to work on strengthening, mobilization and gait training. I will see her in clinic in 10 to 14 days for wound check and remove sutures.
[2019-03-30] MEDS: FERROUS SULFATE PO SCH (09:41)
[2019-03-30] MEDS: NEURONTIN PO SCH ×3 (09:41→18:04)
[2019-03-30] MEDS: GLUCOPHAGE PO SCH ×2 (09:41→18:03)
[2019-03-30] MEDS: ALTACE PO SCH (09:41)
[2019-03-30] MEDS: INDERAL PO SCH ×3 (09:42→18:04)
--- NOTE | 2019-03-30 10:24 | PROGRESS NOTE ---
DATE: 03/30/2019 SUBJECTIVE: Ms. Amador is feeling good. She is eating. Bowels are moving. She is hoping to go to rehab and it appears they are looking for [facility], I believe. OBJECTIVE: Afebrile, temperature 98 degrees, pulse 80, respirations 16, blood pressure 158/63. Pupils are equal and round. Lungs are clear in all lung brewer. Cardiovascular Examination: Regular rhythm and rate without murmur or S3. Abdomen is soft. Skin is warm and dry. ASSESSMENT AND PLAN: 1. Atelectasis. 2. Mild hypoxemic respiratory failure. 3. Trace pleural effusion. 4. Fracture of the left tibia and fibula. Breathing is comfortable. Doing well. Looking for rehab, orthopedic. I think they are going to do conservative treatment. Work on strengthening, mobilization, and gait training. He will see her back in the clinic in 14 days. They did open reduction and internal fixation of the left proximal tibia fracture and closed treatment of left proximal fibula fracture. cc: Raymond Xiong MD
[2019-03-30] MEDS: LIPITOR PO SCH ×2 (18:51→22:12)
[2019-03-30] MEDS: REMERON PO SCH ×2 (18:52→22:12)
--- NOTE | 2019-03-30 22:04 | PULMONOLOGY PROGRESS NOTE ---
DATE: 03/30/2019 SUBJECTIVE: The patient is awake and alert. She reports she has had difficulty with intermittent sleeping throughout the day. She did have pain in her left lower extremity associated with standing today. She reports her appetite has been poor. OBJECTIVE: The patient has been afebrile for the last 24 hours. Blood pressure 148/56, heart rate 84, respiratory rate 16, oxygen saturation 99% on 2 L per nasal cannula.HEENT: Pupils are equal and reactive. Oropharynx is clear. Neck is supple. Chest reveals faint crackles in the lung bases. Cardiac exam: S1, S2. Abdomen is soft, without overt organomegaly. Extremities reveal soft brace on left knee. IMPRESSION: An 79-year-old with: 1. Mild hypoxemic respiratory failure. 2. Atelectasis. 3. Trace effusions. 4. Status post repair of a fractured tibia and fibula. PLAN: 1. Continue incentive spirometry. 2. Continue low-flow nasal cannula and wean as tolerated. 3. Anticipate transfer to rehab soon. cc: Karel Penaloza MD
[2019-03-30] MEDS: TYLENOL PO PRN (22:12)
[2019-03-30] MEDS ORDERED: MIRALAX PO SCH (22:15)
[2019-03-31] MEDS: HUMULIN R SUBQ SCH ×2 (06:59→13:34)
[2019-03-31] MEDS: LOVENOX SUBQ SCH (06:59)
[2019-03-31] MEDS: PRILOSEC PO SCH (07:00)
[2019-03-31] MEDS: TYLENOL PO PRN (07:00)
[2019-03-31 07:18] LABS: HEMATOCRIT 28.7 % (37.0-47.0); HEMOGLOBIN 9.4 g/dL (12.0-16.0)
[2019-03-31] MEDS: GLUCOPHAGE PO SCH (09:25)
[2019-03-31] MEDS: PERIDEX MT SCH (09:25)
[2019-03-31] MEDS: ALTACE PO SCH (09:26)
[2019-03-31] MEDS: FERROUS SULFATE PO SCH (09:27)
[2019-03-31] MEDS: INDERAL PO SCH ×2 (09:28→13:38)
[2019-03-31] MEDS: NEURONTIN PO SCH ×2 (09:29→13:38)
[2019-03-31 11:35] VITALS: BP 156/45
--- NOTE | 2019-03-31 12:41 | DISCHARGE SUMMARY ---
ADMISSION DATE: 03/26/2019 DISCHARGE DATE: 03/31/2019 PHYSICIAN: She is a patient of Zakiya Hardy MD. HISTORY OF PRESENT ILLNESS: This is an 79-year-old who presented to the emergency room on 03/26/2019 complaining of left knee pain. She states that she was stepping down from a curb and did not realize she was stepping down into a drain and fell. The patient was noted to have an abrasion below her left knee area, some swelling noted in the area. She is having some extreme pain. X-ray showed proximal tibia fracture. Dr. Griffin was consulted per the ER physician, Dr. Daniel, and admitted the patient, Orthopedic Service. She has an abrasion below the left knee area. PAST MEDICAL HISTORY: 1. TIA in the past. 2. Hyperlipidemia. 3. Hypertension. 4. Diabetes mellitus type 2. PAST SURGICAL HISTORY: Gallbladder removal. Hysterectomy. ADMISSION DIAGNOSES: 1. Left proximal tibia fracture. Admitted, given some Dilaudid for pain. Dr. Griffin's recommendation was to take her for surgery. 2. Hypertension. Blood pressure was followed. 3. Hyperlipidemia, aware. HOSPITAL COURSE: We will put on gastrointestinal prophylaxis with Prilosec and deep venous thrombosis prophylaxis using Lovenox. She had a lower extremity CT 03/26, oblique fractures of the proximal tibia and fibula. She was wishing to have surgical fixation on the fracture. She did mention wanting to have a second opinion. Talked to one of the partners and orthopedic partners. They were planning for surgery 03/28, however, respiratory function decreased, oxygen sats, so surgery was postponed and Pulmonary evaluated. Pulmonary arteriogram done on 03/28, minimal pleural effusions and atelectasis, questionable interstitial fibrosis. No evidence of pulmonary emboli. Dr. Penaloza felt she had some atelectasis and trace pleural effusions, mild hypoxemic respiratory failure, so she initiated incentive spirometry and tried to mobilize the patient as soon as she was able. Surgery was performed on 03/29, left proximal tibia fracture, left nondisplaced fibular head fracture, so she had a proximal tibial plate placed and did well postop. Dr. Penaloza felt respiratory function was good. She had mild hypoxemic respiratory failure just from atelectasis and was breathing well and comfortable, and she was able to go to rehab on 03/31/2019. DISCHARGE MEDICATIONS: Lipitor 20 mg q.p.m., Colace 200 mg at bedtime, ferrous sulfate 325 mg a day, Neurontin 100 mg t.i.d., Glucophage 500 mg b.i.d., Remeron 15 mg q.p.m., Prilosec 20 mg a day, oxycodone 5 to 10 mg - we will give her q.4 hours p.r.n., MiraLAX 17 g at bedtime, Inderal 20 mg p.o. t.i.d., and Altace 5 mg a day. DISPOSITION: She will go to [facility]. cc: Raymond Xiong MD
--- NOTE | 2019-04-01 16:18 | Extremity Venous Study ---
PROCEDURE NAME: Venous U/S Bilateral Legs - 03/28/2019 PROCEDURE: Lower extremity venous and color-flow imaging involving the [employer] Vivid E9 Ultrasound System with a 9 L-D transducer. REFERRING PHYSICIAN: Rodney Ramsey MD PATIENT INFORMATION: 79-year-old female. [employer]: Tanya Dunn RVT. INDICATIONS: Edema and pain in the bilateral lower extremities suggestive of deep venous thrombosis. The patient has a history of a left leg fracture, and she is having surgery today. She also a history of bilateral great saphenous vein radiofrequency ablation. FINDINGS: The right common femoral vein and its branches, deep and superficial femoral veins were satisfactorily imaged. They had flow through them and were compressible. Right popliteal vein and the deep veins below the right knee were all compressible and had flow through them. The superficial veins of the right lower extremity were compressible throughout their length. There did appear to be venous insufficiency involving the right common femoral vein. The left common femoral vein and its branches, deep and superficial femoral veins were also satisfactorily imaged. They had flow through them and were compressible. Left popliteal vein and the deep veins below the left knee were all compressible and had flow through them. The superficial veins of the left lower extremity were compressible throughout their length. INTERPRETATION: No evidence of acute deep or superficial venous thrombosis of the bilateral lower extremities. The patient has had radiofrequency ablation of both great saphenous veins. There does appear to be venous insufficiency involving both common femoral veins. cc: MD Rodney Goss MD
== END 2019-03-31 13:45 | DRG 492 ==
LOC: SUPCPDRO → ED 22:02 → 4N 03-26 01:40 → SUATTDRO 03-26 01:40
PROVIDERS: ATTEND Emergency Medicine